=== PATIENT | female | born 1975 | race Two or more races ===

== ENCOUNTER → 2016-12-19 | Outpatient (CLI) | payer OTHER ==
--- NOTE | 2016-12-19 12:51 | REPMRS ---
Patient History The patient states she had a clinical breast exam in 12/2016. Patient had first child at age 39. Family history of prostate cancer in paternal grandfather. Retro-pectoral saline implants in both breasts, March 17, 2010. Digital Woman Screen Mammo: December 19, 2016 - Exam #: [id number] Bilateral CC and MLO view(s) were taken. Technologist: Shey Rodriguez, Technologist No prior studies available for comparison. FINDINGS: There are scattered fibroglandular densities. The visualized implant margins are smooth. Breast parenchymal density pattern is essentially symmetric. No dominant mass, clustered microcalcification, or archetectural distortion is evident on either side. ASSESSMENT: BI-RADS/ACR category 2 mammogram. Benign finding(s). Recommendation Routine screening mammogram of both breasts in 1 year (for women over age 40). Electronically Signed By: Andres Montes MD 12/19/16 [id number]
== END ==
LOC: M WHC 10:30
PROVIDERS: ATTEND Family Medicine
DX: Z12.39 Encounter for other screening for malignant neoplasm of breast (principal)

== ENCOUNTER → 2016-12-25 | Outpatient (REF) | payer OTHER | LOC: M SFHCPLAZ 11:40 | PROVIDERS: ATTEND Family Medicine | DX: Z12.4 Encounter for screening for malignant neoplasm of cervix (principal); Z11.3 Encounter for screening for infections with a predominantly sexual mode of transmission ==

== ENCOUNTER → 2017-11-06 | Outpatient (CLI) | payer OTHER | LOC: M WHC 14:56 | DX: R10.2 Pelvic and perineal pain (principal) | CPT/HCPCS: 76830 ==

== ENCOUNTER → 2018-01-08 | Outpatient (CLI) | payer OTHER ==
[~2018-01-08] MED LIST: PROHANCE 279.3MG/ML 15ML VIAL (A9576) As Ordered
== END ==
LOC: M RAD 16:01
DX: E27.8 Other specified disorders of adrenal gland (principal); R16.0 Hepatomegaly, not elsewhere classified; D18.03 Hemangioma of intra-abdominal structures; K76.89 Other specified diseases of liver
CPT/HCPCS: A9576

== ENCOUNTER 2019-07-28 22:57 | Emergency (ER) | payer OTHER ==
[~2019-07-28] VITALS: Ht 170.2 cm; Wt 70.5 kg
[2019-07-28] MEDS ORDERED: PRENTAB9 PO (23:04)
--- NOTE | 2019-07-29 00:28 | REPVR ---
PROCEDURE INFORMATION: Exam: US First Trimester, Transabdominal and US Duplex Artery and Vein, Ovaries, Complete Exam date and time: 07/28/2019 11:54 PM Age: 43 years old Clinical history: Lmp or gestational age (in weeks): Lmp 05/14/19; Antepartum complications; Bleeding; ; Additional info: Vaginal bleeding TECHNIQUE: Imaging protocol: Real-time transabdominal obstetrical ultrasound of the maternal pelvis and a first trimester , less than 14 weeks 0 days, with image documentation. Real-time duplex ultrasound scan of the arterial and venous flow of the ovaries with B-mode, color Doppler flow and spectral waveform analysis, complete duplex. COMPARISON: No relevant prior studies available. FINDINGS: GESTATION: Gestation: Single viable intrauterine gestation. Heart rate: heart rate is 150 beats per minute. Placenta: Unremarkable. No subchorionic bleed. Amniotic fluid: Amniotic and chorionic fluid are normal for gestational age. BIOMETRY: Estimated gestational age: Sonographically estimated gestational ages 11 weeks 6 days. Mango-Rump length: Mango-rump length of the pole is approximately 5.5 cm. Estimated due date: Estimated date of delivery 02/10/2020 MATERNAL: Uterus: Unremarkable. Cervix: Unremarkable. Right adnexa: Right ovary measures 3.6 x 2.1 x 2.3 cm. Normal waveforms. Left adnexa: Left ovary measures 2 x 2.4 x 1.1 cm. Normal waveforms. Intraperitoneal: No intraperitoneal free fluid. IMPRESSION: Single viable intrauterine gestation of 11 weeks 6 days of age. No evidence of ovarian torsion bilaterally. Electronically signed by: Darion Wheeler On 07/29/2019 00:28:07 AM
[2019-07-29 00:33] LABS: BASO # 0.1 10^3/uL (0.0-0.2); BASO % 0.6 % (0.0-1.0); EOS # 0.2 10^3/uL (0.0-0.5); EOS % 2.7 % (0.0-3.0); HEMATOCRIT 35.9 % (36.0-47.0); HEMOGLOBIN 11.7 g/dl (12.0-15.5); LYMPH # 2.2 10^3/uL (1.5-5.0); LYMPH % 24.6 % (24.0-44.0); MEAN CORPUSCULAR HEMOGLOBIN 30.8 pg (27.0-33.0); MEAN CORPUSCULAR HGB CONC 32.6 g/dl (32.0-36.5); MEAN CORPUSCULAR VOLUME 94.5 fl (80.0-96.0); MONO # 0.5 10^3/uL (0.0-0.8); MONO % 5.4 % (0.0-5.0); NEUTROPHILS % 66.3 % (36.0-66.0); PLATELET COUNT, AUTOMATED 249 10^3/uL (150-450)
[2019-07-29 01:57] VITALS: BP 99/58
== END 2019-07-29 01:59 | disposition home or self-care (01) ==
LOC: M ED 22:57
DX: O26.859 Spotting complicating pregnancy, unspecified trimester (principal); Z3A.11 11 weeks gestation of pregnancy; Z83.3 Family history of diabetes mellitus; Z87.59 Personal history of other complications of pregnancy, childbirth and the puerperium; Z87.891 Personal history of nicotine dependence

== ENCOUNTER → 2019-08-05 | Outpatient (CLI) | payer OTHER ==
[~2019-08-05] MED LIST changes: +PRENTAB9 PO; -PROHANCE 279.3MG/ML 15ML VIAL (A9576) As Ordered
== END ==
LOC: M PLALAB 12:09
PROVIDERS: ATTEND Obstetrics & Gynecology
DX: O09.521 Supervision of elderly multigravida, first trimester (principal)

== ENCOUNTER → 2019-08-22 | Outpatient (CLI) | payer OTHER ==
[2019-08-22 18:20] LABS: BASO # 0.1 10^3/uL (0.0-0.2); BASO % 0.5 % (0.0-1.0); EOS # 0.1 10^3/uL (0.0-0.5); EOS % 1.2 % (0.0-3.0); HEMATOCRIT 33.6 % (36.0-47.0); HEMOGLOBIN 11.1 g/dl (12.0-15.5); LYMPH # 1.5 10^3/uL (1.5-5.0); LYMPH % 14.2 % (24.0-44.0); MEAN CORPUSCULAR HEMOGLOBIN 31.4 pg (27.0-33.0); MEAN CORPUSCULAR VOLUME 95.2 fl (80.0-96.0); MONO # 0.5 10^3/uL (0.0-0.8); MONO % 4.8 % (0.0-5.0); NEUTROPHILS # 8.3 10^3/uL (1.5-8.5); NEUTROPHILS % 78.9 % (36.0-66.0); PLATELET COUNT, AUTOMATED 250 10^3/uL (150-450); RED BLOOD COUNT 3.53 10^6/uL (4.00-5.40); WHITE BLOOD COUNT 10.5 10^3/uL (4.0-10.0)
[2019-08-22 19:09] LABS: HIV 1&2 SCREEN CENTAUR NEGATIVE (NEGATIVE); RUBELLA IgG QUALITATIVE IMMUNE (IMMUNE)
[2019-08-22 19:59] LABS: CHLAMYDIA DNA AMPLIFICATION NEGATIVE (NEGATIVE); GC DNA AMPLIFICATION NEGATIVE (NEGATIVE)
[2019-08-25 10:09] LABS: HEPATITIS C VIRUS ABY INDEX 0.2 INDEX (<0.8)
== END ==
LOC: M PLALAB 14:33
PROVIDERS: ATTEND Advanced Practice Midwife
DX: O34.211 Maternal care for low transverse scar from previous cesarean delivery (principal); Z3A.00 Weeks of gestation of pregnancy not specified

== ENCOUNTER → 2019-09-23 | Outpatient (CLI) | payer OTHER ==
--- NOTE | 2019-09-24 03:26 | REP ---
Clinical: Anatomical evaluation. Comparison: 07/28/2019 . Findings: Examination demonstrates a single live intrauterine in breech presentation. motion is identified by technologist. Placenta is noted anterior and grade zero without evidence for placenta previa or abruption. Amniotic fluid volume is normal. Cervix measures 4.9 cm in length and appears closed. No evidence for nuchal cord. Gestational age by LMP 18 weeks 6 days with KRISTEN 02/18/2020 . Gestational age by current measurements 20 weeks 4 days with KRISTEN 02/06/2020 . FHR equals 141 beats per minute. BPD 5.0 cm 21 weeks 0 days HC 17.5 cm 20 weeks 0 days AC 16.0 cm 21 weeks 1 day FL 3.4 cm 20 weeks 5 days HL 3.5 cm 21 weeks 6 days HC/AC ratio 1.10 Estimated weight 378 grams ( 74th percentile based on age by first ultrasound and current measurements ). Anatomical assessment demonstrates normal structures including cranium, choroid plexus, cavum, cerebellum/posterior fossa, facial features, lungs, four-chamber heart/ventricular outflow tracts, diaphragm, stomach, cord insertion/three-vessel cord, kidneys/bladder, spine, and extremities. Impression: Single live intrauterine in breech presentation demonstrating appropriate interval growth compared to first ultrasound. Anatomical assessment is complete and normal. Electronically Signed by Ilya Gay MD 09/24/2019 03:17 A
== END ==
LOC: M RAD 12:43
PROVIDERS: ATTEND Advanced Practice Midwife
DX: O34.211 Maternal care for low transverse scar from previous cesarean delivery (principal); O09.522 Supervision of elderly multigravida, second trimester; Z3A.20 20 weeks gestation of pregnancy

== ENCOUNTER → 2019-11-20 | Outpatient (REF) | payer OTHER ==
[2019-11-20 18:08] LABS: HEMATOCRIT 33.9 % (36.0-47.0); MEAN CORPUSCULAR HEMOGLOBIN 31.5 pg (27.0-33.0); MEAN CORPUSCULAR HGB CONC 32.4 g/dl (32.0-36.5); MEAN CORPUSCULAR VOLUME 97.1 fl (80.0-96.0); PLATELET COUNT, AUTOMATED 199 10^3/uL (150-450); RED BLOOD COUNT 3.49 10^6/uL (4.00-5.40); WHITE BLOOD COUNT 10.9 10^3/uL (4.0-10.0)
== END ==
LOC: M PLALAB 11:47
PROVIDERS: ATTEND Advanced Practice Midwife
DX: O34.211 Maternal care for low transverse scar from previous cesarean delivery (principal)

== ENCOUNTER → 2019-12-05 | Outpatient (CLI) | payer OTHER ==
--- NOTE | 2019-12-05 17:09 | REP ---
OB ULTRASOUND: Real-time sonographic evaluation of the gravid uterus performed. There is a single living intrauterine gestation. The estimated gestational age is 30 weeks 3 days, EDC 02/10/2020. Today's measurements indicate appropriate growth. BPD 80 mm = 32 weeks 1 days, 75th percentile HC 287 mm = 31 weeks 3 days, 65th percentile AC 268 mm = 30 weeks 6 days, 57th percentile FL 59 mm = 30 weeks 5 days, 53rd percentile HC/AC ratio 1.07 is within normal range of 0.97 to 1.16. Estimate weight 1682 grams, 53rd percentile. Cervix closed and measures 3.5 cm in length. heart rate 134 beats per minute. Amniotic fluid within normal limits, CRUZ 18.2, normal range 8.9 to 23.6. The visualized anatomy today includes upper lip, three vessel cord, stomach, cord insertion, kidneys and bladder which are all grossly unremarkable. position vertex. Placenta is anterior and grade 1 with no previa or abruption.
== END ==
LOC: M WHC 13:54
PROVIDERS: ATTEND Nurse Practitioner Women's Health
DX: O09.522 Supervision of elderly multigravida, second trimester (principal); O26.842 Uterine size-date discrepancy, second trimester; Z3A.30 30 weeks gestation of pregnancy

== ENCOUNTER → 2020-01-16 | Outpatient (CLI) | payer OTHER ==
[~2020-01-16] MED LIST changes: +ACET-839 PO; +VALT1TAB PO
== END ==
LOC: M WHC 12:38
PROVIDERS: ATTEND Advanced Practice Midwife
DX: O09.529 Supervision of elderly multigravida, unspecified trimester (principal)
CPT/HCPCS: 59025; 87081; G0463

== ENCOUNTER → 2020-01-23 | Outpatient (CLI) | payer OTHER ==
--- NOTE | 2020-01-23 16:44 | REP ---
OBSTETRIC SONOGRAPHY: HISTORY: Advanced maternal age. growth study. FINDINGS: Scanning through the gravid uterus demonstrates a viable single intrauterine gestation in a cephalic lie. motion is observed and heart rate is recorded at 132 beats per minute. An anterior grade 3 placenta is seen without evidence of previa or abruption. Amniotic fluid is subjectively normal. Closed cervical length was clearly visualized due to head position and late gestational age. No extrauterine abnormalities observed. There has been appropriate interval growth. Exam quality was inhibited by advanced gestational age and position. The following anatomic structures are identified and felt to be unremarkable today: cranium, face and profile, four-chamber heart with left ventricular outflow tract view, diaphragm, left-sided stomach, three-vessel cord, kidneys and bladder. Biometry Chart: BPD 9.1 cm = 37 weeks 0 days Head circumference 33.7 cm = 38 weeks 5 days Abdominal circumference 36.4 cm = 40 weeks 2 days Femur length 7.1 cm = 36 weeks 1 day Humeral length 6.3 cm = 36 weeks 3 days HC/AC ratio normal 0.93 Cephalic index normal 0.75 Estimated weight 3615 grams, 7 pounds 15 ounces, 79th percentile for 37 weeks 3 days. IMPRESSION: Viable single intrauterine gestation at 37 weeks 3 days by today's composite sonographic criteria. Expected gestational age estimate based on prior sonography is 37 weeks 3 days as well. KRISTEN by prior sonography, February 10, 2020. Appropriate interval growth.
== END ==
LOC: M WHC 11:37
PROVIDERS: ATTEND Advanced Practice Midwife
DX: O09.529 Supervision of elderly multigravida, unspecified trimester (principal); Z3A.37 37 weeks gestation of pregnancy

== ENCOUNTER → 2020-02-10 | Outpatient (CLI) | payer OTHER ==
[~2020-02-10] MED LIST changes: +DOCU100C16 PO; +IBUP80TA PO; +PERCOCET PO
== END ==
LOC: M LABSMTC 09:55
PROVIDERS: ATTEND Anesthesiology
DX: Z03.818 Encounter for observation for suspected exposure to other biological agents ruled out (principal); Z11.59 Encounter for screening for other viral diseases
CPT/HCPCS: C9803; U0003

== ENCOUNTER 2020-02-11 07:30 | Inpatient (IN) | payer OTHER ==
[~2020-02-11] VITALS: Ht 170.2 cm; Wt 92.3 kg
[~2020-02-11 07:30] MED LIST changes: -DOCU100C16 PO; -IBUP80TA PO; -PERCOCET PO
[2020-02-13] MEDS ORDERED: ceFAZolin SOD 2 GM in IV 1 EA IV ONE (07:30)
[2020-02-13] MEDS ORDERED: BICITRA 30ML SOLN UDC PO ONE (07:30)
[2020-02-13] MEDS ORDERED: LR 1,000 ML IV SCH ×2 (07:30→12:30)
[2020-02-13] MEDS ORDERED: LR 1,000 ML IV ONE (07:30)
[2020-02-13 07:32] VITALS: BP 104/59
[2020-02-13 08:59] LABS: HEMATOCRIT 34.9 % (36.0-47.0); HEMOGLOBIN 11.8 g/dl (12.0-15.5); MEAN CORPUSCULAR HEMOGLOBIN 31.5 pg (27.0-33.0); MEAN CORPUSCULAR HGB CONC 33.8 g/dl (32.0-36.5); MEAN CORPUSCULAR VOLUME 93.1 fl (80.0-96.0); PLATELET COUNT, AUTOMATED 187 10^3/uL (150-450); RED BLOOD COUNT 3.75 10^6/uL (4.00-5.40); WHITE BLOOD COUNT 10.4 10^3/uL (4.0-10.0)
[2020-02-13] MEDS ORDERED: ONDANSETRON 4MG/2ML VIAL IV PRN ×2 (10:30→12:30)
[2020-02-13] MEDS ORDERED: diphenhydrAMINE 50MG/ML VIAL (J1200) IV PRN ×2 (10:30→12:30)
[2020-02-13] MEDS ORDERED: NALBUPHINE HCL 10 MG/ML AMP (J2300) IV PRN ×2 (10:30→12:30)
[2020-02-13] MEDS ORDERED: NALOXONE INJ 0.4MG/1ML VIAL (J2310 PER 1MG) IV PRN ×2 (10:30)
[2020-02-13] MEDS ORDERED: METOCLOPRAMIDE INJ 10MG/2ML VIAL (J2765 PER 1) IV PRN (10:30)
[2020-02-13] MEDS ORDERED: ONDANSETRON 4MG/2ML VIAL As Ordered ONE (10:47)
[2020-02-13] MEDS ORDERED: ePHEDrine SULFATE 25 MG/5 ML(5MG/ML) SYRINGE As Ordered ONE (10:47)
[2020-02-13] MEDS ORDERED: OXYTOCIN INJ 10 UNITS/ML VIAL (J2590) As Ordered ONE (10:47)
[2020-02-13] MEDS ORDERED: MORPHINE PRES-FREE INJ 10 MG/10 ML VIAL (J2274) As Ordered ONE (10:47)
[2020-02-13] MEDS ORDERED: dexameTHASONE 4 MG/ML 1ML VIAL (J1100 PER 1MG) As Ordered ONE (10:47)
[2020-02-13] MEDS ORDERED: PHENYLephrine HCL 500 MCG/5 ML (100MCG/ML) SYRINGE (J2370) As Ordered ONE (10:47)
[2020-02-13] MEDS ORDERED: OXYTOCIN DRIP 30 UNITS in IV 1 EA IV SCH (11:51)
[2020-02-13] MEDS ORDERED: IBUP80TA PO (11:58)
[2020-02-13] MEDS ORDERED: PERCOCET PO (11:58)
[2020-02-13] MEDS ORDERED: DOCU100C16 PO (11:58)
[2020-02-13] MEDS ORDERED: PROMETHAZINE 25 MG TAB PO PRN (12:00)
[2020-02-13] MEDS ORDERED: ONDANSETRON 4 MG TAB PO PRN (12:00)
[2020-02-13] MEDS ORDERED: PERCOCET 5MG/325MG TAB PO PRN ×2 (12:00)
[2020-02-13] MEDS ORDERED: MEASLES,MUMPS,RUBELLA VACCINE INJ (MMR-II) (90707) SC SCH (12:00)
[2020-02-13] MEDS ORDERED: ACETAMINOPHEN 500 MG TAB PO PRN (12:00)
[2020-02-13] MEDS ORDERED: RHOGAM 300 MCG (1500 IU) INJ (J2790) IM SCH (12:00)
[2020-02-13] MEDS ORDERED: fentaNYL 100 MCG/2 ML INJECTION (J3010) IV PRN (12:30)
[2020-02-13] MEDS ORDERED: MEPERIDINE INJ 25 MG/ML VIAL (J2175) IV PRN (12:30)
[2020-02-13] MEDS ORDERED: oxyCODONE 5MG TAB PO PRN (12:30)
[2020-02-13] MEDS ORDERED: HYDROMORPHONE HCL 0.5 MG/ 0.5 ML SYRINGE (J1170 PER 1) IV PRN (12:30)
[2020-02-13] MEDS ORDERED: KETOROLAC 30 MG/ML 1ML VIAL As Ordered ONE (12:38)
[2020-02-13] MEDS ORDERED: OXYTOCIN 30 UNITS IN 0.9% NaCl 500ML IV BAG (J2590) As Ordered ONE (12:39)
[2020-02-13] MEDS: KETOROLAC 30 MG/ML 1ML VIAL IV SCH ×2 (12:40→19:21)
[2020-02-13] MEDS: LR 1,000 ML IV SCH ×2 (13:27→21:04)
[2020-02-13 13:41] VITALS: BP 105/57
[2020-02-13 16:30] VITALS: BP 104/54
[2020-02-13 18:10] VITALS: BP 107/57
[2020-02-13] MEDS: DOCUSATE SODIUM 100 MG CAP PO SCH (21:04)
[2020-02-13 22:00] VITALS: BP 100/52
[2020-02-14] MEDS: KETOROLAC 30 MG/ML 1ML VIAL IV SCH ×2 (01:20→06:37)
[2020-02-14 02:00] VITALS: BP 98/49
[2020-02-14 06:00] VITALS: BP 102/52
--- NOTE | 2020-02-14 07:19 | IPNPDOC ---
Text Note Date of Service The patient was seen on 02/14/20. NOTE PO #1 Feels well. OOB independently. Adequate pain management. Voiding VSS, afebrile,normotensive Breasts soft Fundus firm Dressing intact, old drainage Lochia rubra scant without odor PO #1 Routine care. Consider discharge in am VS,Fishbone, I+O VS, Fishbone, I+O Laboratory Tests 02/13/20 08:32 Vital Signs Date Time Temp Pulse Resp B/P (MAP) Pulse Ox O2 Delivery O2 Flow Rate FiO2 02/14/20 06:00 97.1 58 18 102/52 (69) 98 Room Air I&O- Last 24 Hours up to 6 AM 02/14/20 05:59 Intake Total 6512 ml Output Total 2975 ml Balance 3537 ml Libby Stephens CNM Feb 14, 2020 07:19
[2020-02-14 07:43] LABS: HEMATOCRIT 29.8 % (36.0-47.0); MEAN CORPUSCULAR HEMOGLOBIN 31.9 pg (27.0-33.0); MEAN CORPUSCULAR HGB CONC 33.6 g/dl (32.0-36.5); MEAN CORPUSCULAR VOLUME 95.2 fl (80.0-96.0); PLATELET COUNT, AUTOMATED 184 10^3/uL (150-450); RED BLOOD COUNT 3.13 10^6/uL (4.00-5.40); WHITE BLOOD COUNT 11.3 10^3/uL (4.0-10.0)
[2020-02-14] MEDS: PRENATAL VITAMINS CHEWABLE TABLET PO SCH (09:15)
[2020-02-14] MEDS: DOCUSATE SODIUM 100 MG CAP PO SCH ×2 (09:15→20:20)
[2020-02-14 10:00] VITALS: BP 121/57
[2020-02-14 14:00] VITALS: BP 89/50
[2020-02-14] MEDS: IBUPROFEN 800 MG TAB PO SCH ×2 (15:03→22:47)
[2020-02-14 18:00] VITALS: BP 100/50
[2020-02-14 22:00] VITALS: BP 116/59
[2020-02-15 02:00] VITALS: BP 111/58
[2020-02-15 06:00] VITALS: BP 113/54
[2020-02-15] MEDS: IBUPROFEN 800 MG TAB PO SCH ×2 (06:40→15:01)
[2020-02-15 10:00] VITALS: BP 109/56
[2020-02-15] MEDS: PRENATAL VITAMINS CHEWABLE TABLET PO SCH (11:27)
[2020-02-15] MEDS: DOCUSATE SODIUM 100 MG CAP PO SCH (11:28)
== END 2020-02-15 17:00 | disposition home or self-care (01) | DRG 785 ==
LOC: M LDI 02-13 07:00 → M OBS 02-13 13:40
PROVIDERS: ADMIT Obstetrics & Gynecology; ATTEND Obstetrics & Gynecology
PROC: 0UB70ZZ Excision of Bilateral Fallopian Tubes, Open Approach (ICD-10-PCS; 2020-02-13)
PROC: 10D00Z1 Extraction of Products of Conception, Low, Open Approach (ICD-10-PCS; principal; 2020-02-13 09:30)
DX: O34.211 Maternal care for low transverse scar from previous cesarean delivery (principal); Z3A.39 39 weeks gestation of pregnancy; Z37.0 Single live birth; Z30.2 Encounter for sterilization